=== PATIENT | male | born 1935 | race Caucasian/White ===

== ENCOUNTER 2022-07-27 14:44 | Inpatient (IN) | payer OTHER ==
[~2022-07-27] VITALS: Ht 165.1 cm; Wt 54.4 kg
[2022-07-27] MEDS ORDERED: LIDOCAINE HCL 1% 20 ML VIAL IJ ONE (15:30)
--- NOTE | 2022-07-27 15:38 | NUR ---
PT IS IN BED #2B. DR STILL EVALUATED THE PT.
[2022-07-27 16:49] LABS: HEMATOCRIT 36.2 % (36.7-47.1); MEAN CORPUSCULAR VOLUME 94.5 fL (73.0-96.2); PLATELET COUNT (AUTO) 93 K/uL (152-348)
[2022-07-27 16:53] LABS: *BILIRUBIN,URIN NEGATIVE (NEGATIVE); *BLOOD, URINE 3+ (NEGATIVE); *CLARITY,URINE CLOUDY (CLEAR); *COLOR,URINE YELLOW (YELLOW); *KETONES,URINE NEGATIVE (NEGATIVE); *UROBILINOGEN,URINE 0.2 E.U./dl (NORMAL); LEUKOCYTE ESTERASE ,URINE 2+ (NEGATIVE); NITRITE, URINE NEGATIVE (NEGATIVE); PH,URINE 5.5 (5.0-8.0); UGLUCOSE NEGATIVE (NEGATIVE)
[2022-07-27 16:56] LABS: CARBON DIOXIDE 26 mmol/L (21-32); CHLORIDE 97 mmol/L (98-107); CREATININE 1.5 mg/dL (0.6-1.3); GLUCOSE 110 mg/dL (74-106); POTASSIUM 4.4 mmol/L (3.5-5.1); UREA NITROGEN, BLOOD 37 mg/dL (7-18)
[2022-07-27] MEDS ORDERED: ASPIRIN 325 MG TABLET ONE ×2 (17:11→17:14)
[2022-07-27 17:13] LABS: ALANINE AMINOTRANSFERASE 35 U/L (16-63); ALKALINE PHOSPHATASE 66 U/L (50-136); ASPARTATE AMINOTRANSFERASE 157 U/L (15-37)
[2022-07-27] MEDS ORDERED: ASPIRIN 325 MG TABLET PO ONE ×2 (17:15→18:45)
[2022-07-27] MEDS ORDERED: CEFTRIAXONE 1 G in IV DEXTROSE 5% 50 ML IV ONE (17:30)
[2022-07-27] MEDS ORDERED: CEFTRIAXONE /D5W 50ML IVPB **ER PYXIS IV ONE (17:52)
[2022-07-27] MEDS ORDERED: LIDOCAINE HCL 1% 20 ML VIAL ONE (18:24)
--- NOTE | 2022-07-27 19:05 | NUR ---
Spoke with Gabbi Valentin from pt's [employer] via telephone as requested by ER admitting. Requested information provided via telephone. She stated pt may be admitted to this facility for observation, auth# [id number], ER admitting notified.
--- NOTE | 2022-07-27 19:48 | NUR ---
Lab called spoke to Opal troponin is at 255. Addendum: 07/27/22 at 2005 by BRIDGETTE Lab called spoke to Opal troponin is at 255. Doctor Cannon notified.
[2022-07-27] MEDS ORDERED: ZIPRASIDONE MESYLATE 20 MG VIAL IM ONE ×2 (20:10→20:15)
--- NOTE | 2022-07-27 20:34 | NUR ---
Called thrid floor for bed. Stated that patient will be in Rm #[id number] with MICHAEL Leonard.
--- NOTE | 2022-07-27 20:59 | NUR ---
Called john elizabeth to give report to MICHAEL Leonard. She was with another patient.
[2022-07-27 21:44] LABS: BACTERIA,URINE MODERATE /HPF (NONE SEEN); RBC,URINE 50-80 /HPF (0-3); SQUAMOUS EPITHELIAL CELL,UR FEW /HPF (NONE SEEN); WBC,URINE 20-50 /HPF (0-3)
--- NOTE | 2022-07-27 22:35 | NUR ---
Transfered patient to thrid floor via stretcher. MICHAEL Leonard made aware of patient's arrival.
[2022-07-27] MEDS ORDERED: TEMAZEPAM 15 MG CAPSULE PO PRN (23:00)
[2022-07-27] MEDS ORDERED: ONDANSETRON 4 MG/2 ML VIAL IV PRN (23:00)
[2022-07-27] MEDS ORDERED: ACETAMINOPHEN 325 MG TABLET PO PRN (23:00)
[2022-07-27] MEDS ORDERED: HYDROCODONE/APAP 5-325MG TABLET PO PRN (23:00)
[2022-07-27] MEDS ORDERED: ENALAPRILAT DIHYDRATE 1.25 MG/1 ML VIAL IV PRN (23:00)
[2022-07-27 23:20] VITALS: BP 167/78
--- NOTE | 2022-07-28 | NUR ---
RECEIVED REPORT FROM ER NURSE PT HAD MULTPLE FALLS AT HOME PT STATESmY WAS CLEANING SHOWER THATS HOW I FELL. PT WAS ASSESSED HAS ORLY ON POSTERIOR OF HEAD AND BRUISE RIGHT ELBOW.PICTURES AND PT DENIES PAIN REQUESTED WATER AND HAD A LARGE SOFT BROWN STOOL. PT CHECKED EVERY 2 HOURS FOR FALLS AND SAFETY PT HAS BED ALARM ON WILL ENDORSE TO AM NURSE.
[2022-07-28 04:00] VITALS: BP 152/78
[2022-07-28] MEDS: PANTOPRAZOLE SODIUM 40 MG TABLET.DR PO SCH (07:00)
[2022-07-28 07:44] LABS: HEMATOCRIT 36.6 % (36.7-47.1); MEAN CORPUSCULAR HEMOGLOBIN 32.1 uug (23.8-33.4); PLATELET COUNT (AUTO) 90 K/uL (152-348)
--- NOTE | 2022-07-28 08:02 | NUR ---
pt asleeep didnt give am protonix endorse to am nurse. Addendum: 07/28/22 at 0807 by [facility] [place] [facility] RN15 RN nurse will later noted on my shift didn't give it.
[2022-07-28 08:49] LABS: ALANINE AMINOTRANSFERASE 44 U/L (16-63); ALKALINE PHOSPHATASE 59 U/L (50-136); ASPARTATE AMINOTRANSFERASE 180 U/L (15-37); BILIRUBIN,TOTAL 0.8 mg/dL (0.2-1.0); CARBON DIOXIDE 21 mmol/L (21-32); CHLORIDE 97 mmol/L (98-107); CHOLESTEROL 169 mg/dL (<200); CREATININE 2.3 mg/dL (0.6-1.3); GLUCOSE 100 mg/dL (74-106); HDL CHOLESTEROL 85 mg/dL (40-60); MAGNESIUM 2.1 mg/dL (1.8-2.4); PHOSPHOROUS 4.8 mg/dL (2.5-4.9); POTASSIUM 3.7 mmol/L (3.5-5.1); TOTAL PROTEIN, SERUM 6.7 g/dL (6.4-8.2); TRIGLYCERIDES 69 MG/DL (30-150); UREA NITROGEN, BLOOD 56 mg/dL (7-18)
[2022-07-28] MEDS: ASPIRIN EC 81 MG TABLET.DR PO SCH (09:11)
[2022-07-28 11:16] LABS: BAND % (MANUAL) 2 % (0-10); LYMPHOCYTES % (MANUAL) 7 % (20-40); MONOCYTES % (MANUAL) 2 % (2-10); NEUTROPHILS % (MANUAL) 89 % (42-75)
[2022-07-28 12:00] VITALS: BP 126/67
[2022-07-28] MEDS: CYANOCOBALAMIN 1000 MCG/ML VIAL IM SCH (12:43)
[2022-07-28] MEDS: QUETIAPINE FUMARATE 25 MG TABLET PO SCH ×2 (12:43→21:00)
[2022-07-28 14:29] LABS: THYROID STIMULATING HORMONE 1.054 mIU/mL (0.358-3.740)
[2022-07-28 16:00] VITALS: BP 112/73
[2022-07-28] MEDS: DOCUSATE SODIUM 100 MG CAPSULE PO SCH (21:01)
[2022-07-28] MEDS: CEFTRIAXONE 1 G in IV DEXTROSE 5% 50 ML IV SCH (21:11)
--- NOTE | 2022-07-29 04:10 | NUR ---
AAOx2-3. Confused and disoriented. VSS Needs attended. Fall precautions maintained. Call grider within reach. On 1:1 sitter. IVF's infusing well @ 75 cc/hr via left arm heplock. Incontinent of bowel and bladder. Kept clean and dry. No acute distress noted. Denies any pain nor any discomfort.
[2022-07-29 05:19] VITALS: BP 99/52
[2022-07-29] MEDS: IV NS 1000 ML 1,000 ML IV PRN (05:23)
[2022-07-29] MEDS: PANTOPRAZOLE SODIUM 40 MG TABLET.DR PO SCH (06:02)
[2022-07-29 06:55] LABS: HEMATOCRIT 34.6 % (36.7-47.1); MEAN CORPUSCULAR HEMOGLOBIN 31.9 uug (23.8-33.4); MEAN CORPUSCULAR VOLUME 94.3 fL (73.0-96.2); PLATELET COUNT (AUTO) 88 K/uL (152-348)
[2022-07-29 07:36] LABS: ALANINE AMINOTRANSFERASE 39 U/L (16-63); ALKALINE PHOSPHATASE 55 U/L (50-136); ASPARTATE AMINOTRANSFERASE 117 U/L (15-37); BILIRUBIN,TOTAL 0.4 mg/dL (0.2-1.0); CARBON DIOXIDE 22 mmol/L (21-32); CHLORIDE 99 mmol/L (98-107); CREATINE KINASE, TOTAL 2605 U/L (39-308); CREATININE 4.2 mg/dL (0.6-1.3); GLUCOSE 92 mg/dL (74-106); MAGNESIUM 2.4 mg/dL (1.8-2.4); PHOSPHOROUS 5.5 mg/dL (2.5-4.9); POTASSIUM 3.6 mmol/L (3.5-5.1); TOTAL PROTEIN, SERUM 5.9 g/dL (6.4-8.2)
[2022-07-29 07:55] LABS: UREA NITROGEN, BLOOD 81 mg/dL (7-18)
[2022-07-29] MEDS ORDERED: TAMSULOSIN HCL 0.4 MG CAP.SR.24H PO SCH (08:46)
[2022-07-29 09:00] VITALS: BP 116/56
[2022-07-29] MEDS: ASPIRIN EC 81 MG TABLET.DR PO SCH (10:14)
[2022-07-29] MEDS: CYANOCOBALAMIN 1000 MCG/ML VIAL IM SCH (10:14)
[2022-07-29] MEDS: QUETIAPINE FUMARATE 25 MG TABLET PO SCH ×2 (10:14→19:56)
[2022-07-29 11:45] VITALS: BP 105/52
[2022-07-29 12:29] LABS: BAND % (MANUAL) 4 % (0-10); LYMPHOCYTES % (MANUAL) 8 % (20-40); MONOCYTES % (MANUAL) 8 % (2-10); NEUTROPHILS % (MANUAL) 80 % (42-75)
[2022-07-29 16:00] VITALS: BP 117/68
[2022-07-29 19:42] VITALS: BP 96/61
[2022-07-29] MEDS: CEFTRIAXONE 1 G in IV DEXTROSE 5% 50 ML IV SCH (20:34)
[2022-07-29] MEDS: DOCUSATE SODIUM 100 MG CAPSULE PO SCH (20:37)
[2022-07-30] MEDS: PANTOPRAZOLE SODIUM 40 MG TABLET.DR PO SCH (06:14)
[2022-07-30 06:15] VITALS: BP 112/61
[2022-07-30 07:14] LABS: CARBON DIOXIDE 23 mmol/L (21-32); CHLORIDE 108 mmol/L (98-107); CREATINE KINASE, TOTAL 918 U/L (39-308); CREATININE 2.3 mg/dL (0.6-1.3); GLUCOSE 100 mg/dL (74-106); MAGNESIUM 2.2 mg/dL (1.8-2.4); PHOSPHOROUS 2.9 mg/dL (2.5-4.9); POTASSIUM 3.6 mmol/L (3.5-5.1); UREA NITROGEN, BLOOD 61 mg/dL (7-18)
[2022-07-30 07:57] LABS: HEMATOCRIT 32.4 % (36.7-47.1); MEAN CORPUSCULAR HEMOGLOBIN 32.3 uug (23.8-33.4); MEAN CORPUSCULAR VOLUME 95.1 fL (73.0-96.2); PLATELET COUNT (AUTO) 98 K/uL (152-348)
--- NOTE | 2022-07-30 08:00 | NUR ---
AWAKE ALERT AND MILDLY CONFUSED TO TIME AND PLACE, ON RA SATURATING 98%. SR ON MONITOR
[2022-07-30] MEDS: QUETIAPINE FUMARATE 25 MG TABLET PO SCH ×2 (08:01→16:14)
[2022-07-30] MEDS: CYANOCOBALAMIN 1000 MCG/ML VIAL IM SCH (08:01)
--- NOTE | 2022-07-30 10:00 | NUR ---
SEEN BY DR PARDO AND HOSPITALIST STATUS CHANGED TO [facility] AND PLAN DISCHARGE IN AM.
[2022-07-30] MEDS: IV NS 1000 ML 1,000 ML IV PRN (11:08)
[2022-07-30 11:55] VITALS: BP 129/63
[2022-07-30 12:06] LABS: A/G RATIO 0.8 (0.7-1.7); ALBUMIN 2.4 g/dL (2.9-4.4); ALPHA-1-GLOBULIN 0.5 g/dL (0.0-0.4); ALPHA-2-GLOBULIN 0.7 g/dL (0.4-1.0); BETA GLOBULIN 0.9 g/dL (0.7-1.3); GAMMA GLOBULIN 0.8 g/dL (0.4-1.8); M-SPIKE Not Observed g/dL (Not Observed)
[2022-07-30] MEDS: ASPIRIN EC 81 MG TABLET.DR PO SCH (14:29)
--- NOTE | 2022-07-30 14:42 | NUR ---
PATIENT RESTING IN BED NO SIGNS OF AGITATION OR SEVERE CONFUSION, CLOSELY MONITORED
--- NOTE | 2022-07-30 15:39 | NUR ---
PATIENT TRIED TO STAND UP AND OUT OF BED, PULLED OUT IV TUBING, REALITY ORIENTATION GIVEN. ASSISTED TO CHAIR AND CLOSELY MONITORED
[2022-07-30 16:00] VITALS: BP 138/81
[2022-07-30 20:00] VITALS: BP 159/69
[2022-07-30] MEDS ORDERED: TAMSULOSIN HCL 0.4 MG CAP.SR.24H PO SCH (21:00)
[2022-07-30] MEDS: CEFTRIAXONE 1 G in IV DEXTROSE 5% 50 ML IV SCH (21:15)
[2022-07-30] MEDS: DOCUSATE SODIUM 100 MG CAPSULE PO SCH (21:15)
[2022-07-31 04:00] VITALS: BP 131/72
--- NOTE | 2022-07-31 04:54 | NUR ---
Patient is AAOX2 with some confusion, anxiety. However, he was able to follow direction, and took his med as prescribed. Patient has been trying to get out of bed several times. Temazepam 15mg has been administered and patient finally fall asleep. He is now sleeping in his room, will continue to monitor patient.
[2022-07-31] MEDS: PANTOPRAZOLE SODIUM 40 MG TABLET.DR PO SCH (06:23)
[2022-07-31 07:18] LABS: HEMATOCRIT 32.4 % (36.7-47.1); MEAN CORPUSCULAR VOLUME 94.9 fL (73.0-96.2); PLATELET COUNT (AUTO) 114 K/uL (152-348)
[2022-07-31 07:51] LABS: CARBON DIOXIDE 26 mmol/L (21-32); CHLORIDE 108 mmol/L (98-107); CREATININE 1.4 mg/dL (0.6-1.3); GLUCOSE 102 mg/dL (74-106); MAGNESIUM 1.9 mg/dL (1.8-2.4); PHOSPHOROUS 2.6 mg/dL (2.5-4.9); POTASSIUM 3.6 mmol/L (3.5-5.1); UREA NITROGEN, BLOOD 38 mg/dL (7-18)
[2022-07-31 08:25] LABS: NEUTROPHILS % (MANUAL) 0 % (42-75)
[2022-07-31] MEDS: ASPIRIN EC 81 MG TABLET.DR PO SCH (09:10)
[2022-07-31] MEDS: QUETIAPINE FUMARATE 25 MG TABLET PO SCH (09:11)
[2022-07-31] MEDS: CYANOCOBALAMIN 1000 MCG/ML VIAL IM SCH (09:11)
--- NOTE | 2022-07-31 09:59 | NUR ---
0720-Rec'd patient in bed, asleep, no respiratory distress noted, on R/A, bed at low position with alarm on. Peña catheter with 300cc yellow urine output. No respiratory or physical distress noted. Safety measures in place, call light within reach. 0900-Scheduled/due medication administered as ordered with no ASE noted. vitamin B12 inj. cheo. well with no C/O pain. Oral fluids encouraged as cheo. taken well. 0945-Examined by Marj Howard [employer] with orders to DC peña catheter. And F/C D/C'D at this time, had 400cc yellow urine output in the bag at this time; will monitor urinary output.
[2022-07-31 11:01] VITALS: BP 125/56
[2022-07-31] MEDS ORDERED: CEPH500T PO ×2 (12:07→12:18)
[2022-07-31] MEDS ORDERED: QUET25TA36 PO (12:07)
[2022-07-31] MEDS ORDERED: ASPI-618 PO (12:07)
[2022-07-31] MEDS ORDERED: TAMS-3 PO (12:07)
--- NOTE | 2022-07-31 17:43 | NUR ---
16:45-PATIENT WAS DISCHARGED HOME, WAS PICKED UP BY SON. ASSISTED DOWN STAIRS SAFELY ON A W/C, DC PAPERWORK PROTOCOL/MEDICATION LIST/INVENTORY LIST SIGNED COPIES PLACED IN CHART. PATIENT LEFT IN GOOD STABLE CONDITIONS WITHIN HIS BASELINE. NO RESPIRATORY DISTRESS, DENIES PAIN. VSS.
== END 2022-07-31 17:00 | disposition home or self-care (01) | DRG 871 ==
LOC: ER 14:44 → TELE3 21:08 → MEDSURG3 07-30 08:24
PROVIDERS: ADMIT Internal Medicine; ATTEND Nurse Practitioner Acute Care
PROC: 0HQ0XZZ Repair Scalp Skin, External Approach (ICD-10-PCS; principal; 2022-07-27)
DX: A41.9 Sepsis, unspecified organism (principal); G93.41 Metabolic encephalopathy; I21.A1 Myocardial infarction type 2; N17.0 Acute kidney failure with tubular necrosis; N39.0 Urinary tract infection, site not specified; E44.1 Mild protein-calorie malnutrition; E87.1 Hypo-osmolality and hyponatremia; M62.82 Rhabdomyolysis; N13.8 Other obstructive and reflux uropathy; D64.9 Anemia, unspecified; I95.1 Orthostatic hypotension; E86.0 Dehydration; E88.09 Other disorders of plasma-protein metabolism, not elsewhere classified; F03.90 Unspecified dementia, unspecified severity, without behavioral disturbance, psychotic disturbance, mood disturbance, and anxiety; H91.90 Unspecified hearing loss, unspecified ear; B96.89 Other specified bacterial agents as the cause of diseases classified elsewhere; N40.1 Benign prostatic hyperplasia with lower urinary tract symptoms; N32.3 Diverticulum of bladder; N21.0 Calculus in bladder; S01.01XA Laceration without foreign body of scalp, initial encounter; W18.30XA Fall on same level, unspecified, initial encounter; R29.6 Repeated falls; I12.9 Hypertensive chronic kidney disease with stage 1 through stage 4 chronic kidney disease, or unspecified chronic kidney disease; N18.9 Chronic kidney disease, unspecified
CPT/HCPCS: 36415; 70030-TC; 70450; 71045; 83735; 83970; 84100; 84153; 84155; 84165; 84443; 84484; 85025; 85610; 93005; 93307; A4663; A6209; G0378; J0696; J3420; J3486; J3490; J7040